=== PATIENT | male | born 1980 | race Caucasian/White ===

== ENCOUNTER → 2016-03-24 | Day surgery (SDC) | payer MEDICAID ==
[~2016-03-24] MED LIST: IOPAMIDOL (ISOVUE-M 300) 15 ML VIAL IV ONE; TRIAMCINOLONE ACETONIDE 200 MG/5 ML MDV IM ONE
--- NOTE | 2016-03-24 23:49 | IR ---
L5-S1 Epidural Steroid Injection Indication: Radiculopathy. 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 Informed Consent: Obtained from the patient. Risks and benefits were discussed. Cross Cutting Measure: Patient's current list of medications including all known prescriptions, over -the-counters, herbals, and vitamin/mineral/dietary supplements are reviewed. Medications' name, dos age, frequency, and route of administration are confirmed. Patient is a non-smoker. Prophylactic Antibiotic: Cefazolin was not ordered and administered for antimicrobial prophylaxis be cause it was not medically necessary. VTE Prophylaxis: There is not an order for VTE prophylaxis to be given within 24 hours of the proced ure end time. VTE prophylaxis was not given because it was not medically necessary. Technique: Patient is placed in prone position. A "timeout" procedure was performed to identify the correct patient and the correct procedure. 1% Xylocaine was used for local anesthetic. All element s of maximal sterile barrier technique, including cap, mask, sterile gown, sterile gloves, large ster ile sheet, hand hygiene, and 2% chlorhexidine for cutaneous antisepsis, followed. A 22-gauge spinal needle is inserted via interlaminar approach on the left side into the L5-S1 epidur al space. Contrast injection confirms satisfactory placement of the needle. This is followed by adm inistration of 100 mg of Kenalog and 3 mL 1% Xylocaine. After the procedure, the patient had a little bit of toe or foot numbness bilaterally. When he was p laced in prone position during recovery, the symptoms resolved. This is likely because of increased pressure caused by the injection on top of his disk herniation and added pressure effect on the spina l canal. Fluoroscopy: 0.7 minutes, 2 images. Impression: L5-S1 epidural steroid injection performed, as above.
== END | disposition home or self-care (01) ==
LOC: FIMAGING 13:05
PROVIDERS: ATTEND Neurological Surgery
PROC: 3E0S33Z Introduction of Anti-inflammatory into Epidural Space, Percutaneous Approach (ICD-10-PCS; principal; 2016-03-24)
PROC: 3E0S3BZ Introduction of Anesthetic Agent into Epidural Space, Percutaneous Approach (ICD-10-PCS; 2016-03-24)
DX: M54.5 Low back pain (principal); M54.16 Radiculopathy, lumbar region; M51.27 Other intervertebral disc displacement, lumbosacral region
CPT/HCPCS: J3301; Q9967

== ENCOUNTER → 2016-05-10 | Outpatient (CLI) | payer MEDICAID | LOC: BMCIMAGING 14:36 | PROVIDERS: ATTEND Internal Medicine | DX: S49.92XA Unspecified injury of left shoulder and upper arm, initial encounter (principal); V00.321A Fall from snow-skis, initial encounter; M25.512 Pain in left shoulder ==